=== PATIENT | male | born 1935 | race Caucasian/White ===

== ENCOUNTER 2016-12-10 12:43 | Inpatient (IN) | payer MEDICARE, OTHER ==
[~2016-12-10] VITALS: Ht 177.8 cm; Wt 87.2 kg
--- NOTE | ~2016-12-10 | ECH ---
Transthoracic Echocardiography Report (TTE) Demographics Patient Name BRIAN OQUENDO Date of Study 12/11/2016 Patient Number [id number] Visit Number [id number] Date of 1935 Room Number 304 Accession Number [id number] Gender Male Age 81 year(s) Referring Jaymie Brooks MD Payroll Representative Patience Garner Physician Dario Rosa MD [facility] Physician Interpreting Samantha LOPES Transmission Assembler Physician Hipolito Supervising Ordering Physician Jaymie Brooks MD, MD/P Nurse Stress Garnett Room Worker Conclusions Contractility Score Summary Normal Left Ventricular contractility was noted. Summary Technically good exam. The estimated left ventricular ejection fraction is 60%. Mildly dilated right ventricle with normal function. The left atrium is severely dilated by LA volume index measurement. The right atrium is moderate to severely dilated. There is moderate to severe aortic regurgitation by color Doppler. Mild tricuspid regurgitation by color Doppler. There is mild pulmonary hypertension. The pulmonary pressure (RVSP) is 37 mmHg. Recommendation The patient will be given the results of this study by the physician who ordered the exam. Procedure Type of Study TTE procedure:Echo Complete SF. Procedure Date Date: 12/11/2016 Start: 08:29 AM Technical Quality: Good visualization Indications:Chest pain, Atrial fibrillation, Hypertension, Coronary artery disease and Abnormal ECG. Additional Indications:History of stents Appropriate Use Criteria: 9 Height: 70 inches Weight: 179 pounds BSA: 1.99 m Rhythm: Atrial fibrillation HR: 75 bpm BP: 145/51 mmHg M-Mode/2D Measurements LV Diastolic Dimension: 5.05 cm LV Systolic Dimension: 3.16 cm LV Septum Diastolic: 0.96 cm LV PW Diastolic: 0.98 cm AO Root Dimension: 3.07 cm Cardiac Output: 7.73 l/min LA Dimension: 5.87 cm Cardiac Index: 3.88 l/min*m RV Diastolic Dimension: 4.04 cm LA volume index: 49 ml/m LVOT: 2.02 cm LVOT VTI: 32.17 cm RV Base: 4.4 cm LV Stroke volume: 103.04 ml RV Mid: 3.7 cm LV Stroke volume index: 51.78 ml/m TAPSE: 3.1 cm TDI-S': 14 cm/s Doppler Measurements AV Peak Velocity: 2.2 m/s MV Peak E-Wave: 1.57 m/s AV Peak Gradient: 19.36 mmHg AV Mean Gradient: 11.96 mmHg MV P1/2t: 64.9 msec LVOT Peak Velocity: 1.47 m/s AV Area (Continuity):2.16 cm AV P1/2t: 484.3 msec MV Area (PHT): 3.39 cm TR Velocity:2.93 m/s PV Peak Velocity: 1.14 m/s TR Gradient:34.34 mmHg PV Peak Gradient: 5.22 mmHg Estimated RAP:3 mmHg Estimated PASP: 37.34 mmHg Estimated RVSP: 37 mmHg E' Septal Velocity: 0.09 m/s E' Lateral Velocity: 0.11 m/s RA Area: 27.38 cm Findings Left Ventricle Normal left ventricle size and function. Diastolic function indeterminate due to patient's arrhythmia. Right Ventricle Mildly dilated right ventricle with normal function. Left Atrium The left atrium is severely dilated by LA volume index measurement. Right Atrium The right atrium is moderate to severely dilated. Mitral Valve Mild mitral annular calcification. Mild mitral regurgitation by color Doppler. Aortic Valve The aortic valve is moderately sclerotic. There is moderate aortic regurgitation by color Doppler. Tricuspid Valve Normal tricuspid valve structure and function. Mild tricuspid regurgitation by color Doppler. There is mild pulmonary hypertension. The pulmonary pressure (RVSP) is 37 mmHg. Pulmonic Valve Normal pulmonic valve structure and function. Mild pulmonic valve regurgitation by color Doppler. Pericardial Effusion No evidence of pericardial effusion. Miscellaneous Visualized portions of the aortic root and ascending aorta appear normal in size. Pleural Effusion No evidence of pleural effusion. Contractility Score LV regional wall motion:(0-Non visualized 1-Normal 2-Hypokinesis 3-Akinesis 4-Dyskinesis 5-Aneurysm) Signature
--- NOTE | ~2016-12-10 | CO ---
ADMIT: 12/10/2016 RM/LOC: 304 [facility] MR#: [id number] [address] [place], [place] [id number] BRIAN OQUENDO [address] [place] [address] Consultation SEX: M AGE: 81 : 1935 CORRECTED: 12/11/2016 1117 AYESHA DATE OF CONSULTATION: 12/10/2016 ATTENDING PHYSICIAN: Moe Bishop MD CONSULTING PHYSICIAN: Jarad Lund MD HISTORY OF PRESENT ILLNESS: The patient is a very pleasant, 81-year-old male, who for the last couple days has had large melenic stools. He has a history of peptic ulcer disease. He denies any abdominal pain. Denies nausea, vomiting, diarrhea, or constipation. He was worked up and was found to have a hemoglobin of 6.8, INR of 6, was admitted to the ICU for observation. PAST MEDICAL HISTORY: Includes hypertension, coronary artery disease, peptic ulcer disease, osteoarthritis. PAST SURGICAL HISTORY: Outlined in Deejay Herrera's note. ALLERGIES: OUTLINED IN DEEJAY HERRERA'S NOTE. MEDICATIONS: Outlined in Deejay Herrera's note. FAMILY HISTORY: Outlined in Deejay Herrera's note. SOCIAL HISTORY: Outlined in Deejay Herrera's note. REVIEW OF SYSTEMS: Outlined in Deejay Herrera's note. PHYSICAL EXAMINATION: VITAL SIGNS: He is afebrile. His vitals are stable. ADMIT: 12/10/2016 RM/LOC: 304 [facility] MR#: [id number] [address] [place] [id number] BRIAN OQUENDO [address] [place] [address] Consultation SEX: M AGE: 81 : 1935 HEART: Regular. LUNGS: Clear. ABDOMEN: Soft, nondistended, nontender. EXTREMITIES: No peripheral edema. NEUROLOGICAL: No focal neurologic deficits. ASSESSMENT AND PLAN: The patient is a 81-year-old, with INR of 6, hemoglobin of 6.8, and melenic stools. Plan is for observation. He is getting vitamin K, and I believe, FFP. We will make sure he is n.p.o. after midnight for possible upper endoscopy evaluation to rule out upper GI blood loss source. Jarad Lund MD/ trish JOB #: [id number] CC: Moe Bishop MD, Attending Physician Lion Figueredo MD, Family Physician CORRECTED: 12/11/2016 1117 AYESHA
--- NOTE | ~2016-12-10 | OR ---
ADMIT: 12/10/2016 RM/LOC: 512 [facility] MR#: [id number] [address] [address] BRIAN OQUENDO [address] [place] [address] Operative/Delivery Room Report SEX: M AGE: 81 : 1935 SURGERY DATE: 12/11/2016 SURGEON: Jaime Samson MD PREOPERATIVE DIAGNOSIS: GI blood loss and melena, question upper gastrointestinal blood loss. POSTOPERATIVE DIAGNOSIS: Very large hiatal hernia with mild gastritis. No evidence of any active bleeding. PROCEDURE PERFORMED: EGD with biopsies. ANESTHESIA: Sedation. ESTIMATED BLOOD LOSS: None. DESCRIPTION OF PROCEDURE: After appropriate informed consent was obtained, the patient was brought to the endoscopy suite. IV sedation was provided. A well-lubricated endoscope was introduced and passed down the esophagus. The esophageal mucosa appeared normal. There was no evidence any reflux changes. No damage. No mass or tumor. The scope was advanced past the GE junction into a very large hiatal hernia. This was a difficult hiatal hernia to even traverse. Nearly the entirety of the stomach was up in his chest, and so the scope kept looping in the fundus and the herniated portion of the stomach. I was ultimately able to identify a pretty tight hiatal opening. I was able to advance through this area into the antrum. It was difficult to even measure how big this hiatal hernia was because of again the twisting and looping of the scope in the herniated portion of the stomach. The scope was advanced through into the antrum. The antrum appeared very mildly inflamed as did the fundus for that matter. The pylorus was intubated. Duodenal bulb, second, and third portions of the duodenum appeared normal. The scope was then pulled back into stomach. I was unable to retroflex the scope in the antrum, but I was able to retroflex it within the herniated portion of the stomach and the GE junction appeared normal from below. He did have some mild antral gastritis. Several biopsies were taken of the fundus and then biopsies were also taken of the gastric antrum. The stomach was then deflated and scope was withdrawn without apparent complications. We will plan on doing colonoscopy for the patient tomorrow since there was not any identifiable source for his blood loss in the stomach. Jaime Samson MD/ trish JOB #: [id number] CC: Moe Bishop MD, Attending Physician Lion Figueredo MD, Family Physician
[~2016-12-10 12:43] MED LIST: APRESOLINE-DPS50 MG PO; ASPIR 8181 MG PO; COUMADIN DPS3 MG PO; FEOSOL325 MG PO; FIRST-OMEPR2 MG/1 ML PO; LASIX40 M1 PO; LATANOPROST2.5 ML OU; LEVAQUIN500 MG PO; LOPRESSOR DPS12.5 MG PO; LOTENSIN40 MG PO; MAALOX DPS30 ML PO; MULTIVITAMINS1 EAC1 PO; NITROSTAT0.4 MG SL; NORVASC DPS10 MG PO; PROVENTIL2.5 MG/3 M IH; SIMVASTATIN10 MG PO; SURFAK240 MG PO; TYLENOL325 MG PO
[2016-12-18] MEDS ORDERED: NORVASC DPS10 MG PO (11:04)
[2016-12-18] MEDS ORDERED: METOPROLOL TART25 MG PO (11:04)
[2016-12-18] MEDS ORDERED: LOTENSIN DPS20 MG PO (11:04)
[2016-12-18] MEDS ORDERED: PRILOSEC DPS20 MG PO (11:04)
[2016-12-18] MEDS ORDERED: TYLENOL DPS325 MG PO (11:05)
[2016-12-18] MEDS ORDERED: ASPIR 8181 MG PO (11:05)
[2016-12-18] MEDS ORDERED: ZOCOR DPS10 MG PO (11:05)
[2016-12-18] MEDS ORDERED: XALATAN2.5 ML OU (11:05)
[2016-12-18] MEDS ORDERED: LEVAQUIN DPS750 MG PO (11:06)
[2016-12-18] MEDS ORDERED: NITROGLYCERIN0.4 MG SL (11:07)
--- NOTE | 2016-12-18 11:26 | OR ---
ADMIT: 12/10/2016 RM/LOC: 512 [facility] MR#: [id number] [address] [address] BRIAN OQUENDO [address] [place] [address] Operative/Delivery Room Report SEX: M AGE: 81 : 1935 SURGERY DATE: 12/12/2016 SURGEON: Jaime Samson MD PREOPERATIVE DIAGNOSIS: Gastrointestinal bleed, question lower gastrointestinal blood loss. POSTOPERATIVE DIAGNOSIS: Extensive diverticula with evidence of ulceration at about 40 cm near one of the diverticulum, likely the source of his gastrointestinal bleed. PROCEDURE PERFORMED: Colonoscopy. ANESTHESIA: Sedation. ESTIMATED BLOOD LOSS: None. DESCRIPTION OF PROCEDURE: After appropriate informed consent was obtained, the patient was brought to the endoscopy suite. IV sedation was provided. Rectal exam revealed no hemorrhoids, no rectal masses. The scope was introduced. He had a pretty good prep. There is no evidence of any mass or tumor. He did have extensive sigmoid diverticula and at 40 cm, there is an ulcerated area just along the rim of one of these diverticula which I suspect was the cause of his bleeding. I did not identify any mass or tumor. There was some adherent clot there that I was unable to suction off completely. The scope was advanced past this area all the way to the cecum. Ileocecal valve and appendiceal orifice were normal. The scope was slowly and carefully withdrawn, and no polyps or masses were identified on the way out. Again, re- inspected this area of extensive diverticula and ulceration and clot, I irrigated it a bit, I did not identify any active bleeding. Other than the clot adhered to this site, there was no other evidence of recent bleed. So, left that alone. The scope was then pulled back down to the rectum, retroflexed revealing no internal hemorrhoids or rectal masses. The patient tolerated the procedure well and was taken to the recovery room in stable condition. Jaime Samson MD/ trish JOB #: [id number] CC: Moe Bishop MD, Attending Physician Lion Figueredo MD, Family Physician Moe Bishop MD
--- NOTE | 2016-12-21 11:50 | CO ---
ADMIT: 12/10/2016 RM/LOC: 304 [facility] MR#: [id number] [id number] [address] BRIAN BAUM [address] [place] [address] Consultation SEX: M AGE: 81 : 1935 DATE OF CONSULTATION: 12/10/2016 ATTENDING PHYSICIAN: Moe Bishop MD CONSULTING PHYSICIAN: Debra Coon MD REASON FOR CONSULT: Chest pain. HISTORY OF PRESENT ILLNESS: Mr. Baum is a pleasant 81-year-old, white male who presented with some melanotic stools. He has been feeling more fatigued, tired, little more unsteady on his feet. Last night was having some chest pressure about rated an 8/10. It was noted to have EKG changes. We were consulted. Upon the time of evaluation, he was chest pain free. He said this is different than when he had his TN in the past. He denies any fevers or chills or cough or cold symptoms. PAST MEDICAL HISTORY: Includes hypertension, GERD, coronary artery disease, history of PCI, previous hiatal hernia, carotid artery stenosis, chronic renal insufficiency, glaucoma, hyperlipidemia, degenerative joint disease with history of prostatectomy and radiation for prostate cancer. CURRENT MEDICATIONS: 1. Lopressor. 2. Saline. 3. Protonix. At home, he is on: 1. Coumadin. 2. Metoprolol. 3. Aspirin. 4. Amlodipine 10. 5. Latanoprost eye drops. ALLERGIES: NONE KNOWN. FAMILY HISTORY: Father had lung cancer. Mother with an TN. One sister with TN. ALLERGIES: NONE. SOCIAL HISTORY: Social drinker. Nonsmoker and retired. REVIEW OF SYSTEMS: A full 10-point review of systems was obtained and deemed to be negative except for the pertinent dictated positive in the HPI. PHYSICAL EXAMINATION: VITAL SIGNS: His blood pressure is 145/51 with a pulse of 75, temp 97.1, his weight is 180 pounds. GENERAL: He is a pleasant well-nourished, well-developed white male, in no acute distress. Alert and oriented x3. NECK: Brisk carotid upstrokes. No JVD or bruit. ADMIT: 12/10/2016 RM/LOC: 304 [facility] MR#: [id number] [address] [address] BRIAN BAUM [address] [place] [address] Consultation SEX: M AGE: 81 : 1935 CHEST: Clear. HEART: Regular. ABDOMEN: Soft. EXTREMITIES: No cyanosis, clubbing, or edema. MUSCULOSKELETAL: Normal. NEUROLOGIC: Normal. SKIN: [place], warm, and dry. EKG, initial EKG shows sinus rhythm with no ST changes. Repeat EKG when he is having chest pain shows ST depression of V4 only. Creatinine is 3.2, potassium 4.8. Troponin is negative. CK and MB are negative. His INR on admission was greater than 6 with a repeat of 4.8. His hemoglobin on admission was 6.8. ASSESSMENT AND PLAN: 1. Chest pain, resolved. 2. Coronary artery disease. 3. Abnormal EKG. 4. Gastrointestinal bleed. 5. Anemia. 6. Permanent atrial fibrillation. 7. Coronary artery disease. I suspect his EKG changes and symptoms due to the extreme anemia, trend his enzymes and check an echocardiogram in the a.m. He is okay to reverse his Coumadin and okay for EGD in the morning. We will amend the plan and consider stress testing as an outpatient if further warranted. Debra Coon MD/ trish JOB #: [id number] CC: Moe Bishop MD, Attending Physician Lion Figueredo MD, Family Physician
--- NOTE | 2017-01-12 16:49 | HP ---
ADMIT: 12/10/2016 RM/LOC: 304 [facility] MR#: [id number] [address] [address] BRIAN OQUENDO [address] [place] [address] History and Physical SEX: M AGE: 81 : 1935 DATE OF SERVICE: CHIEF COMPLAINT: Rectal bleeding. HISTORY OF PRESENT ILLNESS: This is a very pleasant, 81-year-old, white male who is [facility], who has been having melena. He reports that 1-week history of just not feeling well with increased fatigue, maybe a little more unsteady on his feet and then yesterday he passed a blood tinged stool and maybe some dark stool and then this morning, his noted that he had nevin blood melena. They went [facility]. There, he was found to be hypotensive, had uncontrollable melena in the bathroom. I was called by ADALGISA Miller for direct admission. At the time of admission, his hemoglobin was 6.8; therefore, he was transferred to the ICU, hydrated with IV fluids and is just finishing his 2nd unit of blood currently. He has no history of GI bleed that he is aware of; however, his did report he has a history of peptic ulcer disease. Surgery has been consulted. He also had an episode of chest pain this afternoon after fresh frozen plasma, had EKG changes, ST depression. Cardiology was consulted as well, and they thought it was just demand ischemia from his severe anemia. PAST MEDICAL HISTORY: Remarkable for hypertension, gastroesophageal reflux disease, atrial fibrillation, coronary artery disease status post stent placement x2, previous hiatal hernia, carotid artery stenosis, chronic kidney disease, glaucoma, hyperlipidemia, prostate cancer, DJD, and history of colon polyps. Last colonoscopy was December of 2015. PAST SURGICAL HISTORY: Surgeries include prostatectomy and radiation for his prostate cancer. CURRENT MEDICATIONS: Include: 1. Warfarin 4 mg Saturday, Saturday, , Saturday and 8 mg Saturday, Saturday, and Saturday. 2. Aspirin 81 mg daily. 3. Amlodipine 10 mg daily. 4. Benazepril 40 mg daily. 5. Omeprazole 20 mg daily. 6. Metoprolol 25 mg daily. 7. Cefdinir 300 mg b.i.d. 8. Latanoprost 0.005% one drop each eye at bedtime. 9. Simvastatin 10 mg at bedtime. ALLERGIES: NONE. FAMILY HISTORY: Father had lung cancer . Mother from an SD. One sister with SD. SOCIAL HISTORY: Occasional alcohol use. Does not smoke. He is retired. REVIEW OF SYSTEMS: GENERAL: No fevers or chills. ADMIT: 12/10/2016 RM/LOC: 304 [facility] MR#: [id number] [id number] [place], [place] [id number] [place], [place] [address] [address] History and Physical SEX: M AGE: 81 : 1935 HEENT: No headaches, blurry vision, or double vision. CARDIAC: As per HPI. PULMONARY: No shortness of breath. GASTROINTESTINAL: As per HPI. GENITOURINARY: No dysuria, urgency, or frequency. ENDOCRINE: No polyuria or polydipsia. PSYCH: No depression. INTEGUMENTARY: No new rashes. Polyps are negative. OBJECTIVE: VITAL SIGNS: Currently, his blood pressure is 152/39, pulse 69, respirations 16, and temp 96.7 GENERAL: He is in no acute distress. He is alert. He is oriented. When he first was admitted, his blood pressure was 71/30. LUNGS: Pupils are reactive. Conjunctivae are clear. Clear oropharynx. Moist mucous membranes. NECK: Soft and supple. LUNGS: Clear to auscultation with decreased breath sounds. Heart is irregular. ABDOMEN: Soft. It is nontender. Positive bowel sounds. EXTREMITIES: No cyanosis. No clubbing. SKIN: No rashes. NEUROLOGIC: Cranial nerves II through XII are grossly intact. No focal deficits. LAB/X-RAY DATA: Initially shows a white count of 10.1, hemoglobin 6.8, and platelets 245,000. Sodium 137, potassium 4.8, chloride 106, CO2 of 19, BUN 104, creatinine 3.2, glucose 122, calcium 8.1, total bilirubin is 0.5, total protein is 5.7, albumin 2.7, alkaline phosphatase 69, AST 23, ALT 29, and calcium 9.1. INR is greater than 6. ADMIT: 12/10/2016 RM/LOC: 304 [facility] MR#: [id number] [address] [address] BRIAN OQUENDO [facility] [place] [address] History and Physical SEX: M AGE: 81 : 1935 ASSESSMENT: 1. Acute gastrointestinal bleed. 2. Acute blood loss anemia. 3. Coronary artery disease. 4. Acute kidney injury. 5. Atrial fibrillation. 6. Hypotension. PLAN: He has been hydrated with IV fluids. We are giving vitamin K and fresh frozen plasma. He is now receiving his second unit of blood. Surgery has been consulted. Cardiology has been consulted, and we will change treatment plan as hospital course dictates. Moe Bishop MD/ trish JOB #: [id number] CC: Moe Bishop MD, Attending Physician Lion Figueredo MD, Family Physician
--- NOTE | 2017-01-14 08:51 | CO ---
ADMIT: 12/10/2016 RM/LOC: 304 [facility] MR#: [id number] [address] [address] BRANDON OQUENDO [address] [place] [place] [address] Consultation SEX: M AGE: 81 : 1935 DATE OF CONSULTATION: 12/10/2016 ATTENDING PHYSICIAN: Moe Bishop MD CONSULTING PHYSICIAN: Jarad Lund MD REASON FOR CONSULTATION: Anemia and black stools. HISTORY OF PRESENT ILLNESS: Brandon is a very pleasant 81-year-old male, who went to his doctor's appointment this morning about 11 a.m. where at that time, he had a very large black bowel movement. He did notice some incontinence during this episode, and as a result, it made him short of breath. He does have a history of peptic ulcer disease. He does have some mild abdominal pain, but he believes it is from him not having anything to eat today. He further denies having any nausea, vomiting, lightheadedness, dizziness, bright red blood per rectum, or constipation. His bowel movement today was loose. He denies any syncopal episodes. Because of his symptoms, he decided to seek medical attention, which lab work revealed a hemoglobin of 6.8 and INR of greater than 6. He has now been admitted to the ICU for management of this. PAST MEDICAL HISTORY: Significant for coronary artery disease, hypertension, prostate cancer, anticoagulation therapy, peptic ulcer disease, and osteoarthritis. PAST SURGICAL HISTORY: Last EGD was performed by Dr. Moreira in the early 1999s. At that time, it looked like there was only some duodenitis noted. Last colonoscopy was about 1 or 2 years ago and had no pertinent findings. He does have a history of colon polyps, however. ALLERGIES: NO KNOWN DRUG ALLERGIES. MEDICATIONS: 1. Coumadin 8 mg Saturday, Saturday, and Saturday and 4 mg Saturday, , Saturday, and Saturday. 2. Aleve p.r.n. FAMILY HISTORY: Noncontributory. SOCIAL HISTORY: He has the occasional beer, but denies any illicit drug use or tobacco use. REVIEW OF SYSTEMS: CONSTITUTIONAL: The patient denies any fever, chills, or night sweats. MUSCULOSKELETAL: The patient gets around with a cane or walker when he is having knee pain. Denies any decreased range of motion or any back problems. The rest of comprehensive 10-point review of systems was performed, and all other systems are negative. ADMIT: 12/10/2016 RM/LOC: 304 [facility] MR#: [id number] [address] [place] [id number] BRANDON OQUENDO [address] [place] [address] Consultation SEX: M AGE: 81 : 1935 PHYSICAL EXAMINATION: GENERAL: The patient is in no acute distress. He is alert and oriented. HEENT: Head is normocephalic and atraumatic. EOMS are intact. Conjunctivae free of icterus, erythema, or pallor. Pinnae free of deformities. Nose is midline. No tracheal deviation. NECK: Supple. SKIN: Negative for jaundice, clubbing, edema, pallor, or cyanosis. There is some bruising on his upper extremities consistent with anticoagulation therapy. LUNGS: Normal respiratory effort. HEART: Distal pulses intact. Regular rate and rhythm. ABDOMEN: Soft, nondistended, mild tenderness in epigastric region. NEUROLOGIC: Grossly intact. LABORATORY DATA: Hemoglobin is 6.8, white blood cell count 10.1. INR is greater than 6. ASSESSMENT: 1. Upper gastrointestinal bleed. 2. Anemia. 3. Supratherapeutic anticoagulation therapy. PLAN: The patient has been admitted to the ICU and will be receiving 2 units of packed red blood cells, 10 mg of vitamin K, and 1 unit of FFP. We will see how his INR trends down, and hopefully, he will be ready for upper endoscopy tomorrow. We will check his INR prior to any scheduling of any endoscopy. In the meantime, I will get him on clears, keep him n.p.o. at midnight, and recheck some lab works in the morning. The patient and his family, who are present during my assessment are in agreement of this plan. I had all their questions answered and they would like to proceed. It is important to note that the patient is capable of making his own medical decision making as family will be leaving shortly to go on a trip to [place]. Numbers have been provided in the room. Thank you for the consultation of this patient. ADALGISA De / Jarad Lund MD / trish JOB #: [id number] CC: Moe Bishop MD, Attending Physician Lion Figueredo MD, Family Physician
--- NOTE | 2017-02-18 10:20 | DS ---
ADMIT: 12/10/2016 RM/LOC: [facility] MR#: [id number] [address] [id number] BRIAN OQUENDO [address] [place] [address] General Discharge Summary SEX: M AGE: 81 : 1935 ADMISSION DATE: 12/10/2016 DISCHARGE DATE: 12/14/2016 FINAL DIAGNOSIS: 1. Acute gastrointestinal bleed. 2. Acute blood loss anemia. 3. Chest pain. 4. Coronary artery disease. 5. Atrial fibrillation. 6. Hypotension secondary to acute blood loss. 7. Large hiatal hernia. 8. Mild gastritis. 9. Acute kidney injury. REASON FOR ADMISSION: This is a very pleasant, 81-year-old, white male who presented to the emergency room with a 1-week history of just not feeling well, increasing fatigue. Yesterday he noticed some blood-tinged stool, and then on the day of admission, developed nevin blood with melena. Came into the emergency room for further evaluation. HOSPITAL COURSE: He was admitted on 12/10/2016 to the ICU. Monitored serial H and HS, rehydrated with IV normal saline, and surgery was consulted. He was also having some chest discomfort, so we did consult cardiology. His hemoglobin did ultimately drop, and he did receive 2 units of packed red blood cells. He was found to have a supratherapeutic INR, so we did give a unit of FFP as well as vitamin K for reversal due to ongoing bleeding requiring transfusion. We did check cardiac enzymes after he was complaining of some chest pain. He was placed on Protonix IV. He did have some EKG changes, and Dr. Coon felt that that was secondary to his severe anemia. On 12/11/2016, he had an okay night. He had no bowel movement. His hemoglobin was 7.8 and stable. His cardiac enzymes were unremarkable. He underwent EGD, which did reveal a large hiatal hernia, mild gastritis. He was transferred to [facility] status. They did not find an obvious source of bleeding, so on 12/12/2016, he underwent colonoscopy, which was unremarkable other than some diverticula. On 12/13/2016, he had no evidence of rebleed. INR is 1.39. We decreased his IV fluids to 50 mL an hour. He was advanced to a regular diet. On 12/14/2016, he had a good night, had some rivera colored bowel movement. His hemoglobin was stable at 7.8. He was felt stable for discharge. ADMIT: 12/10/2016 RM/LOC: [facility] MR#: [id number] [address] [place] [id number] BRIAN OQUENDO [place] [address] [place] [address] General Discharge Summary SEX: M AGE: 81 : 1935 DISCHARGE INSTRUCTIONS: 1. Lopressor 25 mg daily. 2. Norvasc 10 mg daily. 3. Zocor 10 mg at bedtime. 4. Tylenol 325 mg 2 tabs q.4 hours p.r.n. 5. Benazepril 40 mg daily. 6. Omeprazole 20 mg daily. 7. Latanoprost 0.005% one drop at bedtime. 8. Simvastatin 10 mg at bedtime. Follow up with [facility], Cristel Russell, early next week. CBC, BMP at office visit. Follow up with [facility] per their wishes. Moe Bishop MD/ faith JOB #: [id number] CC: Moe Bishop MD, Attending Physician Lion Figueredo MD, Family Physician
[2017-05-05] MEDS ORDERED: LOTENSIN40 MG PO (14:42)
[2017-05-05] MEDS ORDERED: NORVASC DPS10 MG PO (14:43)
[2017-05-05] MEDS ORDERED: PRILOSEC DPS20 MG PO (14:43)
[2017-05-05] MEDS ORDERED: ZOCOR DPS10 MG PO (14:43)
[2017-05-05] MEDS ORDERED: ASA CHILDREN'S81 MG PO (14:43)
[2017-05-05] MEDS ORDERED: TENORMIN-DPS25 MG PO (14:44)
[2017-05-05] MEDS ORDERED: ULTRAM DPS50 MG PO (14:44)
[2017-05-05] MEDS ORDERED: MUCINEX600 MG PO (14:44)
[2017-05-05] MEDS ORDERED: XALATAN2.5 ML OU (14:44)
[2017-05-05] MEDS ORDERED: FEOSOL-DPS325 MG PO (14:44)
[2017-05-05] MEDS ORDERED: ZYLOPRIM100 MG PO (14:44)
[2017-05-05] MEDS ORDERED: ROCEPHIN DPS2 GM IV (14:45)
[2017-05-05] MEDS ORDERED: DUONEB DPS3 ML IH (14:45)
== END 2016-12-14 12:35 | disposition home or self-care (01) | DRG 378 ==
LOC: 3ICU 12:43 → 5MS 12:43 → 3ICU 12-11 15:31 → 5MS 12-11 17:16
PROVIDERS: ADMIT Family Medicine
PROC: 30233K1 Transfusion of Nonautologous Frozen Plasma into Peripheral Vein, Percutaneous Approach (ICD-10-PCS; 2016-12-10)
PROC: 30233N1 Transfusion of Nonautologous Red Blood Cells into Peripheral Vein, Percutaneous Approach (ICD-10-PCS; 2016-12-10)
PROC: 0DB68ZX Excision of Stomach, Via Natural or Artificial Opening Endoscopic, Diagnostic (ICD-10-PCS; principal; 2016-12-11)
PROC: 0DJD8ZZ Inspection of Lower Intestinal Tract, Via Natural or Artificial Opening Endoscopic (ICD-10-PCS; 2016-12-12)
DX: K57.31 Diverticulosis of large intestine without perforation or abscess with bleeding (principal); K63.3 Ulcer of intestine; N17.9 Acute kidney failure, unspecified; I95.9 Hypotension, unspecified; I24.8 Other forms of acute ischemic heart disease; D62 Acute posthemorrhagic anemia; I48.2 Chronic atrial fibrillation; I35.1 Nonrheumatic aortic (valve) insufficiency; K29.70 Gastritis, unspecified, without bleeding; K21.9 Gastro-esophageal reflux disease without esophagitis; I25.10 Atherosclerotic heart disease of native coronary artery without angina pectoris; I65.29 Occlusion and stenosis of unspecified carotid artery; I12.9 Hypertensive chronic kidney disease with stage 1 through stage 4 chronic kidney disease, or unspecified chronic kidney disease; I25.2 Old myocardial infarction; R79.1 Abnormal coagulation profile; K44.9 Diaphragmatic hernia without obstruction or gangrene; N18.9 Chronic kidney disease, unspecified; H40.9 Unspecified glaucoma; E78.5 Hyperlipidemia, unspecified; M19.90 Unspecified osteoarthritis, unspecified site; Z85.46 Personal history of malignant neoplasm of prostate; Z86.010 Personal history of colon polyps; Z95.5 Presence of coronary angioplasty implant and graft; Z87.11 Personal history of peptic ulcer disease; Z79.82 Long term (current) use of aspirin; Z82.49 Family history of ischemic heart disease and other diseases of the circulatory system; Z79.01 Long term (current) use of anticoagulants

== ENCOUNTER 2016-12-15 00:09 | Inpatient (IN) | payer MEDICARE, OTHER ==
[~2016-12-15] VITALS: Ht 177.8 cm; Wt 87.5 kg
--- NOTE | 2016-12-17 08:49 | HP ---
ADMIT: 12/15/2016 RM/LOC: 409 [facility] MR#: [id number] [address] [address] BRIAN BAUM [address] [place] [address] History and Physical SEX: M AGE: 81 : 1935 DATE OF SERVICE: CHIEF COMPLAINT: Chest pain. HISTORY OF PRESENT ILLNESS: Mr. Baum is a pleasant 81-year-old, male who generally gets his care through [facility] who is being admitted today as a city call patient. He was actually just admitted earlier this week and discharged yesterday after having a significant diverticular GI bleed. With this, he had severe anemia requiring blood transfusion as well as transfusion of FFP. His hemoglobin on admission on December 10 of this year was 6.8, and reached a shawn of 6.6. Following transfusion, his hemoglobin stabilized around 8.0. He underwent a colonoscopy, which showed a probable diverticular bleed. He had been on Coumadin and this was held. He also had signs of an acute kidney injury with that GI bleed. His creatinine was 3.2 and trended down or at discharge was 1.4. The patient reports after he was discharged, he felt well and had no concerns. He was able to enjoy some time with his family and had normal lunch and dinner at home. He said he was beginning to feel a little bit more tired, so he laid down yesterday evening. His grandson came over later in the evening to stay with him. Sometime around 11 p.m., he woke up to go to the restroom. When he was using the restroom, he developed chest pain. He describes it as a "400-pound boulder" in the center of his chest with burning. It was so severe that he hollered for his grandson to take him to the emergency room right away. His pain, however, resolved prior to arrival. He denies any chest pain at this time. He says he does feel some burning and difficulty catching his breath when he lays flat, but this is not new and feels different than the episode he had over night at home. Upon evaluation in the emergency department, initial cardiac workup was unremarkable. Chest x-ray was performed and there was concern for pneumonia. The patient does report that he has had a slight cough over the last day. He has had some right-sided chest pain that he feels could be due to this pneumonia that he was told by the emergency physician. He has not had any fevers or chills. Appetite has been normal. No recurrent signs of GI bleed. PAST MEDICAL HISTORY: 1. Recent GI bleed within the last one week. 2. Coronary artery disease. 3. Hypertension. 4. Gastric reflux disease. 5. Permanent atrial fibrillation previously on anticoagulation now on hold due to his GI bleed. 6. History of carotid artery stenosis. 7. Chronic kidney disease with recent acute kidney injury. 8. History of prostate cancer. 9. Glaucoma. 10.Previous hiatal hernia. 11.Degenerative joint disease. 12.History of colon polyps. ADMIT: 12/15/2016 RM/LOC: 409 [facility] MR#: [id number] [address] [place] [id number] BRIAN BAUM [address] [place] [address] History and Physical SEX: M AGE: 81 : 1935 SURGICAL HISTORY: Status post prostatectomy and radiation for prostate cancer. MEDICATIONS: Per discharge note: 1. Amlodipine 10 mg daily. 2. Omeprazole 20 mg daily. 3. Benazepril 40 mg daily. 4. Metoprolol 25 mg daily. 5. Simvastatin 10 mg daily. 6. Tylenol p.r.n. 7. Latanoprost 0.005%, one drop to each eye at bedtime. ALLERGIES: NO KNOWN MEDICAL ALLERGIES. FAMILY AND SOCIAL HISTORY: Unchanged from H and P dated December 10, 2016. REVIEW OF SYSTEMS: As per HPI. Others reviewed and negative. PHYSICAL EXAMINATION: VITAL SIGNS: Currently with temperature of 96.7, pulse 77, respiratory rate 18, blood pressure 166/72, oxygen saturation 96% with O2 by nasal cannula. GENERAL: The patient is seated in the chair in no acute distress. He is pleasant and cooperative. Alert and oriented x3. HEENT: Within normal limits. HEART: Regular rate and rhythm with 2/6 systolic ejection murmur. LUNGS: Clear to auscultation with no accessary muscle use. No adventitial sounds. ABDOMEN: Soft, nontender, nondistended. Normal bowel sounds appreciated. EXTREMITIES: Warm and dry. No edema. NEUROLOGIC: Cranial nerves II through XII grossly intact. I did not appreciate any focal neurologic deficit. PSYCHIATRIC: The patient has a slightly depressed affect, but is otherwise appropriate. LABORATORY DATA: Please see electronic record for full details. But of note, his creatinine is 1.4, which is stable from yesterday's discharge, which was also 1.4. INR was 1.33. Initial troponin was less than 0.015 and on repeat was 0.017. Hemoglobin is 8.4 and discharge yesterday was 7.8. White blood cell count is 8.1 with a normal differential. Procalcitonin was 0.37. Blood cultures have been drawn and are pending. Chest x-ray, official Radiology over-read is pending but per my read, there is a right perihilar consolidation as well as questionable left lower lobe consolidation. Chest x-ray was compared with x-ray from May 2016. ADMIT: 12/15/2016 RM/LOC: 409 [facility] MR#: [id number] [facility] [address] [address] BRIAN BAUM [place] [address] [place] [address] History and Physical SEX: M AGE: 81 : 1935 EKG shows atrial fibrillation with a rate of 84. No acute ST-T wave change. ASSESSMENT AND PLAN: 1. Healthcare associated pneumonia. No signs of SIRS at this time. We will continue on IV Levaquin and oxygen as needed. We will continue to monitor labs and oxygen needs. We will trend his oxygen overnight given his reported increased symptoms while supine. 2. Atypical chest pain. We will rule out acute coronary syndrome given his history of coronary artery disease. Cardiology has been consulted and appreciate their recommendations. 3. Recent gastrointestinal bleed, lower gastrointestinal bleed diverticular. His hemoglobin is stable, and he denies any acute symptoms of this. We will continue to hold his Coumadin and monitor closely. 4. Acute anemia. Hemoglobin is currently stable. This is secondary to his recent GI bleed. We will continue to monitor. 5. Chronic kidney disease with recent acute kidney injury. Creatinine is currently stable. 6. Known coronary artery disease. Appreciate Cardiology's recommendations. At this point, given concern for his acute chest pain, and stability of his GI bleed, I think it is reasonable to restart a low-dose aspirin. As described above, I would recommend continuing to hold his Coumadin. 7. Permanent atrial fibrillation. Rates are currently controlled. 8. Gastroesophageal reflux disease. This could have contributed to the symptoms he described overnight once acute coronary syndrome is ruled out. We will continue his PPI. 9. Chronic hypertension. This is currently uncontrolled with a blood pressure greater than 160 systolic. We will restart his home medications and adjust as needed. 10.Hyperlipidemia. We will continue his home statin. DISPOSITION: We will continue to treat the patient's pneumonia as an inpatient to rule out acute coronary syndrome. If does well with this, we will transition to oral antibiotics and discharge home in the next 2-3 days. Prisca Garcia MD/ trish JOB #: [id number] CC: Prisca Garcia MD, Attending Physician Prisca Garcia MD, Family Physician
[2016-12-18] MEDS ORDERED: METOPROLOL TART25 MG PO (11:04)
[2016-12-18] MEDS ORDERED: NORVASC DPS10 MG PO (11:04)
[2016-12-18] MEDS ORDERED: PRILOSEC DPS20 MG PO (11:04)
[2016-12-18] MEDS ORDERED: LOTENSIN DPS20 MG PO (11:04)
[2016-12-18] MEDS ORDERED: ASPIR 8181 MG PO (11:05)
[2016-12-18] MEDS ORDERED: TYLENOL DPS325 MG PO (11:05)
[2016-12-18] MEDS ORDERED: XALATAN2.5 ML OU (11:05)
[2016-12-18] MEDS ORDERED: ZOCOR DPS10 MG PO (11:05)
[2016-12-18] MEDS ORDERED: LEVAQUIN DPS750 MG PO (11:06)
[2016-12-18] MEDS ORDERED: NITROGLYCERIN0.4 MG SL (11:07)
--- NOTE | 2016-12-19 08:15 | ER ---
ADMIT: 12/15/2016 RM/LOC: ER [facility] MR#: [id number] [address] [address] BRIAN OQUENDO [address] [place] [address] Emergency Room Report SEX: M AGE: 81 : 1935 DATE: 12/15/2016 CHIEF COMPLAINT: Chest pain and shortness of breath. HISTORY OF PRESENT ILLNESS: The patient is a 81-year-old male, who had a recent admission for the past 5 days for a GI bleed. The patient was found to be supratherapeutic on his INR that he takes Coumadin for AFib. He had melena and had acute blood-loss anemia at time of admission. He did go to the ICU and received a couple units of blood and some FFP and his Coumadin was held. He subsequently got endoscopy and colonoscopy with no bleeding source identified. His bleeding did stop when his INR improved. While he was in the hospital, he had 1 episode of chest pain and was evaluated by Cardiology. From my understanding, it was believed that this was likely demand ischemia secondary to his anemia. He had some T-wave depression in V4, V5, and V6 at that time and had an echo done, which showed no acute abnormalities. From my understanding, his EKG normalized while he was here. He was discharged home yesterday morning and was doing fine until he had 1 episode of severe substernal chest pressure this evening. He called his grandson, who went and picked him up and brought him in. The chest pain lasted about 15 to 20 minutes and then resolved just prior to arrival here. He described the pain as very heavy weight in the center of his chest without any radiation. He did feel like he was short of breath at the time, but had no nausea, vomiting, or diaphoresis. The patient states he has had a mild cough for the past 1 to 2 days. REVIEW OF SYSTEMS: A 10-point review of systems is done and otherwise negative. PAST MEDICAL HISTORY: Significant for coronary artery disease, he has had 2 stents in the past. Hypertension, hyperlipidemia, GERD, AFib, chronic kidney disease, prostate cancer, recent GI bleed. PAST SURGICAL HISTORY: He has had cardiac stents, prostatectomy, recent endoscopy and colonoscopy. MEDICATIONS: See nurse's note. He had been on Coumadin, but was stopped this past week with his GI bleed. ALLERGIES: NONE. SOCIAL HISTORY: Denies smoking or drug use. Does use alcohol occasionally. PHYSICAL EXAMINATION: VITAL SIGNS: The patient was afebrile on presentation. Remainder of his vital signs were unremarkable. HEAD: Atraumatic. LUNGS: Clear to auscultation. HEART: Irregular, but not tachycardic. ABDOMEN: Soft, nontender. SKIN: Warm and dry. ADMIT: 12/15/2016 RM/LOC: [facility] MR#: [id number] [address] [place] [id number] [place] [address] [place] [address] Emergency Room Report SEX: M AGE: 81 : 1935 EXTREMITIES: He has equal pulses in all 4 extremities. No pedal edema. No skin lesions or rashes. EMERGENCY DEPARTMENT COURSE: When the patient presented, his story did sound concerning for cardiac chest pain, especially in light of his coronary artery disease history and recent anemia. We did get an EKG, which showed AFib with a rate of 79 with little depression in V4, but no other leads showed any abnormalities, he had no ST elevation. I did compare his EKG to previous studies and there was 1 EKG during his last hospitalization where he had depression in V4, V5, and V6. His cardiac enzymes were normal x1, in the Emergency Department and his hemoglobin was 8.4. Chest x-ray did show what looks like opacity in his right base. His story was not initially concerning for pneumonia, but in light of his chest x-ray with recent endoscopy and cough, I am going to go ahead and treat the patient for pneumonia and started an IV Levaquin in the Emergency Department. We did add on lactic acid, procalcitonin, and blood cultures prior to giving the IV antibiotics. He normally sees [employer] [facility], so I contacted Dr. Garcia, who is on for city call, who will be admitting the patient. The patient otherwise remained stable in the Emergency Department with no return of his chest pain. DIAGNOSES: 1. Chest pain. 2. Pneumonia. 3. Anemia. Javed Whitney MD/ trish JOB #: [id number] CC: Javed Whitney MD, Attending Physician
--- NOTE | 2016-12-24 08:40 | DS ---
ADMIT: 12/15/2016 RM/LOC: 409 [facility] MR#: [id number] [address] [address] BRIAN OQUENDO [address] [place] [address] Discharge Summary SEX: M AGE: 81 : 1935 ADMISSION DATE: 12/15/2016 DISCHARGE DATE: 12/17/2016 DISCHARGE DIAGNOSES: 1. Atypical chest pain. 2. Known coronary artery disease. 3. Obstructive sleep apnea. 4. Permanent atrial fibrillation. 5. Recent lower GI (gastrointestinal) bleed. 6. Blood loss anemia. 7. Chronic kidney disease with acute kidney injury. 8. Gastroesophageal reflux disease. 9. Hypertension. 10.Hyperlipidemia. 11.Generalized weakness. 12.Hypomagnesemia. CONSULT: Cardiology. PROCEDURES: None. REASON FOR ADMISSION: The patient was admitted after presenting to the emergency department with chest pain and findings consistent with pneumonia on chest x-ray. Please see H and P for full details. HOSPITAL COURSE: The patient was admitted to telemetry for evaluation and treatment of his symptoms. Cardiac enzymes were obtained and initially were negative. With serial monitoring of these, they reached a peak of 0.03. His chest pain had resolved other than having some shortness of breath and chest burning when he would lie flat. With sitting up, his pain would resolve. It was found that he had a diagnosis of obstructive sleep apnea with a sleep study reviewed from August of this year. He, however, has not been using his CPAP machine. I attempted to restart a CPAP on his last day of admission. He did not tolerate the mask we had, but says he tolerates the mask he has at home much better. He also has a recent history of a GI bleed within the last two weeks. This was due to a supratherapeutic INR from Coumadin, and his Coumadin has been on hold. He has had no symptoms of GI bleed during this admission. We did restart his 81 mg aspirin due to concern for coronary artery disease. He has tolerated his aspirin well. His hemoglobin did trend downward at 7.5 with admission being 8.4. We transfused 1 unit of packed red blood cells. His hemoglobin was greater than 8 at discharge. He also had a mildly low magnesium of 1.7. This was replaced orally. He has known atrial fibrillation and on telemetry. Remained in atrial fibrillation during his hospitalization. He has gastroesophageal reflux disease, and his PPI was continued. He also has hyperlipidemia, and his statin was continued. He is on several medications for hypertension. His blood pressures remained mildly elevated in the 150s systolically. Cardiology was consulted and has been following along. On his admission chest x-ray, there was some concern for bilateral pneumonia. He was, therefore, started on IV Levaquin. He very ADMIT: 12/15/2016 RM/LOC: 409 [facility] MR#: [id number] [id number] [place] [id number] [place], [place] [address] [address] Discharge Summary SEX: M AGE: 81 : 1935 briefly required oxygen by nasal cannula to maintain normal oxygen saturations but has been stable on room air for the last two days of hospitalization. He underwent an overnight trend oximetry which was normal, although he was restless. His antibiotic was changed to oral Levaquin on December 16, and he tolerated this well. His white count remained within normal limits. Procalcitonin was mildly elevated on admission at 0.37 but trended downward. Blood cultures had no growth. The patient describes generalized weakness, and PT was consulted. He was felt stable for discharge on December 17. DISCHARGE MEDICATIONS: 1. Aspirin 81 mg enteric-coated daily. 2. Levaquin 750 mg p.o. daily for a total of 10 days. 3. Lopressor 25 mg daily. 4. Norvasc 10 mg daily. 5. Protonix 40 mg daily. 6. Zestril 40 mg daily. 7. Zocor 10 mg daily. 8. Xalatan eyedrops 1 drop both eyes at bedtime. 9. Tylenol p.r.n. 10.Nitrostat p.r.n. DISCHARGE INSTRUCTIONS: The patient was discharged to home in stable condition. He will continue with cardiac diet and activity as tolerated. Also encouraged him to restart use of his home CPAP machine. He will follow up with his usual primary care providers at [facility] as previously arranged from his last hospitalization or within the next 1-2 weeks if need to reschedule. He will also continue with cardiac followup as previously arranged. Greater than 30 minutes was spent in discharge. Prisca Garcia MD/ ajf JOB #: [id number] CC: Prisca Garcia MD, Attending Physician Prisca Garcia MD, Family Physician
--- NOTE | 2016-12-27 10:56 | CO ---
ADMIT: 12/15/2016 RM/LOC: 409 [facility] MR#: [id number] [address] [address] BRANDON OQUENDO [address] [place] [address] Consultation SEX: M AGE: 81 : 1935 DATE OF CONSULTATION: 12/15/2016 ATTENDING PHYSICIAN: Prisca Garcia MD CONSULTING PHYSICIAN: Rohith Crawford MD REASON FOR CONSULT: Chest pain. HISTORY OF PRESENT ILLNESS: Brandon is a 81-year-old gentleman, who just left the hospital earlier this week. He has a history of coronary artery disease with previous PCI. He presented last week with melanotic stools. He was markedly anemic. He had acute renal failure. He was having some chest discomfort what we thought was overall atypical. He ended up ruling out for myocardial infarction. There was a discussion of possible stress test as an outpatient as he recover. During that hospitalization, he did find erosion and probable diverticular bleed. He went home. He said he just got home and was doing fairly well. He went for a walk yesterday. He had eaten. He went to bed. One of his grandson came over to check on him. At that point, he was doing well, but shortly thereafter, he woke up, and he said he just felt like a "hot rock sitting on his chest." He was short of breath. He said the pain was severe. There were no specific significant associated symptoms. His grandson brought him to the emergency room. By the time he got here, he was essentially pain free. There is a question of a pneumonia. His enzymes have been negative. His EKG shows continued atrial fibrillation in the setting of known permanent atrial fibrillation. His anticoagulation has obviously been held. He is currently resting comfortably, but he would like to get into his chair. He does not appear to be any acute distress. ALLERGIES: NO KNOWN MEDICAL ALLERGIES. HOME MEDICATIONS: Upon discharge were: 1. Amlodipine 10 daily. 2. Omeprazole 20 daily. 3. Benazepril 40 daily. 4. Metoprolol 25 daily. 5. Latanoprost eye drops. 6. Simvastatin. 7. Tylenol. Rest of the past medical, social, and family history unchanged. REVIEW OF SYSTEMS: Unchanged and reviewed. Noncontributory other than that mentioned in the HPI. PHYSICAL EXAMINATION: VITAL SIGNS: His blood pressure this morning was 178/80. Pulse 84 and regular, respirations 16, he is afebrile. GENERAL: He is alert and oriented. His voice is very soft. He is pale. ADMIT: 12/15/2016 RM/LOC: 409 [facility] MR#: [id number] [address] [address] OQUENDOBRANDON BINGHAM [address] [place] [address] Consultation SEX: M AGE: 81 : 1935 SKIN: Pale, warm and dry. EYES: Sclerae clear. No xanthelasmas. ENT: There is positive JVD versus brisk carotid upstroke. No bruits are noted. CHEST: Respirations are even and unlabored. Lungs are clear to auscultation. HEART: Regular rate and rhythm. Normal S1, S2. No murmurs, rubs or gallops. ABDOMEN: Soft and nontender. EXTREMITIES: No significant edema. Peripheral pulses palpable. MUSCULOSKELETAL: Gait is normal. PSYCHIATRIC: Alert and oriented. Mood and affect are appropriate. LABORATORY DATA: Potassium is 4.1, creatinine is 1.4 that is down from 3.2 on December 10. AST is 23, ALT was normal last week. CK is only 34. Troponins are negative x2. INR is 1.3. Hemoglobin is 8.4, white count 8.1, platelet count 322,000. Chest x-ray read by the emergency room physician thought there might be a consolidation consistent with pneumonia. IMPRESSION: 1. Atypical chest pain. 2. Known history of coronary artery disease. 3. Permanent atrial fibrillation. 4. Recent lower gastrointestinal/diverticular bleed. 5. Recent acute renal failure. 6. Ongoing anemia. RECOMMENDATIONS: His symptoms are atypical. He is ruled out once again. I still do not think there is no evidence of an acute coronary artery syndrome at this point. He is not good invasive candidate given his anemia and recent GI bleed and acute renal failure. I do not think he would need a heart catheterization at this point anyway. As he recovers, we will consider ischemic evaluation with the stress test. There is a question of a developing possible pneumonia. We will continue medical management with his statin and beta-juanjo. I would prefer we resume some low-dose aspirin if at all possible. We will continue to hold his chronic anticoagulation for the time being with his recent GI bleed. The treatment for his atrial fibrillation will remain rate control, which is adequate at this point. Rohith Crawford MD/ trish JOB #: [id number] CC: Prisca Garcia MD, Attending Physician Prisca Garcia MD, Family Physician
[2017-05-05] MEDS ORDERED: LOTENSIN40 MG PO (14:42)
[2017-05-05] MEDS ORDERED: ASA CHILDREN'S81 MG PO (14:43)
[2017-05-05] MEDS ORDERED: ZOCOR DPS10 MG PO (14:43)
[2017-05-05] MEDS ORDERED: PRILOSEC DPS20 MG PO (14:43)
[2017-05-05] MEDS ORDERED: NORVASC DPS10 MG PO (14:43)
[2017-05-05] MEDS ORDERED: XALATAN2.5 ML OU (14:44)
[2017-05-05] MEDS ORDERED: TENORMIN-DPS25 MG PO (14:44)
[2017-05-05] MEDS ORDERED: ULTRAM DPS50 MG PO (14:44)
[2017-05-05] MEDS ORDERED: ZYLOPRIM100 MG PO (14:44)
[2017-05-05] MEDS ORDERED: MUCINEX600 MG PO (14:44)
[2017-05-05] MEDS ORDERED: FEOSOL-DPS325 MG PO (14:44)
[2017-05-05] MEDS ORDERED: DUONEB DPS3 ML IH (14:45)
[2017-05-05] MEDS ORDERED: ROCEPHIN DPS2 GM IV (14:45)
== END 2016-12-17 11:45 | disposition home or self-care (01) | DRG 194 ==
LOC: ER 00:09 → 4PCU 01:25
PROVIDERS: ADMIT Family Medicine
PROC: 30233N1 Transfusion of Nonautologous Red Blood Cells into Peripheral Vein, Percutaneous Approach (ICD-10-PCS; principal; 2016-12-16)
DX: J18.9 Pneumonia, unspecified organism (principal); N17.9 Acute kidney failure, unspecified; I48.2 Chronic atrial fibrillation; D50.0 Iron deficiency anemia secondary to blood loss (chronic); E83.42 Hypomagnesemia; I25.10 Atherosclerotic heart disease of native coronary artery without angina pectoris; K57.90 Diverticulosis of intestine, part unspecified, without perforation or abscess without bleeding; I65.29 Occlusion and stenosis of unspecified carotid artery; G47.33 Obstructive sleep apnea (adult) (pediatric); H40.9 Unspecified glaucoma; M19.90 Unspecified osteoarthritis, unspecified site; K44.9 Diaphragmatic hernia without obstruction or gangrene; E78.5 Hyperlipidemia, unspecified; K21.9 Gastro-esophageal reflux disease without esophagitis; I12.9 Hypertensive chronic kidney disease with stage 1 through stage 4 chronic kidney disease, or unspecified chronic kidney disease; N18.9 Chronic kidney disease, unspecified; Z95.5 Presence of coronary angioplasty implant and graft; Z85.46 Personal history of malignant neoplasm of prostate; Z86.010 Personal history of colon polyps